=== PATIENT | female | born 1995 | race Caucasian/White ===

== ENCOUNTER 2016-07-05 07:45 | Emergency (ER) | payer OTHER ==
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
[~2016-07-05 07:45] MED LIST: FLEXERIL10 MG PO; NEURONTIN600 MG PO
== END 2016-07-05 08:03 | disposition home or self-care (01) ==
LOC: SED 07:45
DX: S80.02XA Contusion of left knee, initial encounter (principal); W01.0XXA Fall on same level from slipping, tripping and stumbling without subsequent striking against object, initial encounter; Y92.69 Other specified industrial and construction area as the place of occurrence of the external cause; Y99.0 Civilian activity done for income or pay; F17.200 Nicotine dependence, unspecified, uncomplicated
CPT/HCPCS: 29530; 73562; 99283